=== PATIENT | female | born 2000 | race African-American/Black ===

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

== ENCOUNTER 2019-01-19 14:16 | Inpatient (IN) | payer OTHER ==
[~2019-01-19] VITALS: Ht 170.1 cm; Wt 43.2 kg
--- NOTE | ~2019-01-19 | WRIGHTHP ---
[place], [place] PATIENT HISTORY AND PHYSICAL EXAM NAME: KARMEN RING UNIT #: [id number] ROOM: 415 DOCTOR: PARESH RUSH MD BIRTHDATE: [birth year] DOS: 01/19/2019 HISTORY OF PRESENT ILLNESS: The patient is 18 years old. She is known to me. She states that she was walking to her friend's house and developed a dizzy spell, fell over, hit her face on the concrete, developed a laceration of the nose and so she decided to come into the Emergency Room. She has had a cough for the last few days. She has not had any pleuritic symptoms. Does not have any chest pains or palpitations, does not have any fever or chills, but that morning, she thought that she was hot. PAST MEDICAL HISTORY: Significant for ADHD and history of iron deficiency anemia. MEDICATIONS: The patient takes Strattera 25 and iron 324 daily. SOCIAL HISTORY: She is a nonsmoker. Denies using any alcohol. PHYSICAL EXAMINATION: GENERAL: She is awake, alert and oriented. VITAL SIGNS: Graphic trend shows a pressure of 109/61, pulse of 69, respirations 20, temperature 98.3. LUNGS: Diminished breath sounds. No wheezes, rales or rhonchi heard. HEART: Regular. ABDOMEN: Soft, scaphoid. EXTREMITIES: Without any edema. LABORATORY DATA: White cell count is 15.8. Rapid flu negative. Comprehensive glucose 105, BUN 13, creatinine 1.04, sodium 138, potassium 3.6, chloride 106, bicarbonate 24, lactic acid 3.5. Chest x-ray shows right middle and lower lobe pneumonia. ASSESSMENT AND PLAN: 1. Right middle and lower lobe pneumonia, possible gram negative. We will add IV antibiotics and breathing treatments. 2. Sepsis pattern. Blood cultures and carr cultures have been ordered. 3. Lactic acidosis, possibly from sepsis. IV fluids have been ordered. It should start coming down. 4. Fall with laceration. Local wound care as ordered. The patient's drug screen was positive for cocaine as well as marijuana. Street drug use was noted. The patient was counseled. 5. Attention deficit hyperactivity disorder. Continue Strattera. [place], [place] PATIENT HISTORY AND PHYSICAL EXAM NAME: KARMEN RING UNIT #: [id number] ROOM: [facility] DOCTOR: PARESH RUSH MD BIRTHDATE: [birth year] PARESH RUSH MD [facility]IENT HISTORY AND PHYSICAL EXAMINATION [id number] PARESH RUSH MD 01/21/19 0854 interface
--- NOTE | ~2019-01-19 | EKG ---
[place], [place] ELECTROCARDIOGRAM REPORT NAME: KARMEN RING UNIT #: [id number] ROOM: 415 DOCTOR: PAMELA DRAFT REPORT BIRTHDATE: [birth year] [facility] Test Date: 2019-01-19 Test Time: 14:46:17 Pat Name: KARMEN RING Department: Room: 415 Gender: F Field Ironworker: Heidi Little : 2000 Requested By: ADRIEL CODY Order Number: [id number] Reading MD: Jakub Snider Measurements Intervals [place] Rate: 100 P: 43 AR: 115 QRS: 68 QRSD: 82 T: -20 QT: 315 QTc: 407 Interpretive Statements Sinus tachycardia Borderline repolarization abnormality Electronically Signed On 01-21-2019 11:57:45 PST by Jakub Snider CM:EKGRPT:ELECTROCARDIOGRAM REPORT [id number] ADRIEL CODY EPIPHANY DRAFT REPORT ADRIEL CODY
--- NOTE | ~2019-01-19 | WRIGHTHP ---
[place], [place] PATIENT HISTORY AND PHYSICAL EXAM [id number] UNIT #: [id number] ROOM: 415 DOCTOR: PARESH RUSH MD BIRTHDATE: [birth year] DOS: 01/21/2019 SUBJECTIVE: The patient is resting, is not having any new complaints. OBJECTIVE: VITAL SIGNS: Blood pressure is 109/61, pulse of 70, respirations 20, temperature 98.3. LUNGS: Diminished breath sounds. Clear. HEART: Regular. ABDOMEN: Soft and scaphoid. EXTREMITIES: Without any edema. LABORATORY DATA: Blood cultures, no bacterial growth. Urine culture, no bacterial growth. Strep screen negative. Lactic acid finally normalized to 1.3. ASSESSMENT AND PLAN: 1. Right lower lobe and right middle lobe pneumonia, possible gram-negative, on IV antibiotics. 2. Elevated white cell count with sepsis pattern, which has been ruled out with a negative blood cultures, ovarian chest x-ray and lab work. If it is okay, the plan is to discharge the patient to home today. PARESH RUSH MD CM:HISPHYS:PATIENT HISTORY AND PHYSICAL EXAMINATION 4 PARESH RUSH MD 01/21/19 0840 interface
[2019-01-19 14:17] VITALS: BP 107/77
[2019-01-19] MEDS ORDERED: IRON18 MG PO (14:18)
[2019-01-19 15:08] LABS: BASO # 0.1 10*3/uL (0.0-0.1); BASO % 0.3 % (0.0-1.0); EOS # 0.1 10*3/uL (0.0-0.4); EOS % 0.5 % (1.0-4.0); HEMOGLOBIN 10.5 g/dl (12.0-16.0); LYMPH # 2.6 10*3/uL (1.3-4.4); LYMPH % 16.8 % (27.0-41.0); MEAN CORPUSCULAR HGB 21.9 pg (27.0-31.0); MEAN CORPUSCULAR HGB CONC 29.2 g/dl (33.0-37.0); MEAN PLATELET VOLUME 8.8 fl (9.6-12.3); MONO # 1.5 10*3/uL (0.1-1.0); MONO % 9.3 % (3.0-9.0); NEUT # 11.5 10*3/uL (2.3-7.9); NEUT % 72.8 % (47.0-73.0); PLATELET COUNT AUTOMATED 315 10*3/uL (130-400); RED CELL DISTRI WIDTH 19.7 % (0-14.5); WHITE BLOOD COUNT 15.8 10*3/uL (4.8-10.8)
[2019-01-19 15:17] VITALS: BP 120/75
[2019-01-19 15:21] LABS: ALBUMIN 3.6 gm/dl (3.1-4.5); ALKALINE PHOSPHATASE 83 U/L (45-117); BUN 13 mg/dl (7-24); CHLORIDE 106 mmol/L (98-107); CREATININE 1.04 mg/dL (0.55-1.02); POTASSIUM 3.6 mmol/L (3.5-5.1); SGOT/AST 16 IU/L (3-35); SGPT/ALT 21 U/L (12-78); SODIUM 138 mmol/L (136-145); TOTAL PROTEIN 8.4 gm/dL (6.4-8.2)
--- NOTE | 2019-01-19 15:24 | NUR ---
NOTIFIED BY LAB PTS LACTIC ACID 3.5. FRANKLIN SQUIRES NOTIFIED.
[2019-01-19 15:32] LABS: BILIRUBIN NEGATIVE (NEGATIVE); BLOOD 3+ (NEGATIVE); CLARITY CLOUDY (CLEAR); COLOR YELLOW (YELLOW); GLUCOSE NEGATIVE (NEGATIVE); KETONE NEGATIVE (NEGATIVE); LEUKO ESTERASE NEGATIVE (NEGATIVE); NITRITE NEGATIVE (NEGATIVE); PH 5.5 (5.0-9.0); SPECIFIC GRAVITY >= 1.030 (1.005-1.030); UROBILINOGEN 0.2 E.U./dl (0.2-1.0)
[2019-01-19 15:38] LABS: BACTERIA 2+; EPITHELIAL CELLS TNTC; MUCOUS TRACE
[2019-01-19 15:40] LABS: URINE AMPHETAMINES < 1000 (1000ng/ml); URINE BARBITURATES < 200 (200ng/ml); URINE BENZODIAZEPINES < 200 (200ng/ml); URINE CANNABINOIDS (THC) > 50 (50ng/ml); URINE COCAINE > 300 (300ng/ml); URINE METHADONE < 300 (300ng/ml); URINE OPIATES < 300 (300ng/ml); URINE PHENCYCLIDINE < 25 (25ng/ml)
--- NOTE | 2019-01-19 15:47 | NUR ---
PT JOSE HER BREATHING RXMENT.SHE IS MORE ALERT. IV ROCEPHIN INFUSING. MOM AT BEDSIDE.---GINNY LOCO RN
[2019-01-19 17:23] VITALS: BP 101/58
--- NOTE | 2019-01-19 17:46 | NUR ---
ALSO NOTE,UPON PT ARRIVAL HER NOSE ABRASION WAS CLEANSED WITH STERILE SALINE. PT GIVEN KELLEY CRACKERS AND HIRAL RICHAR FOR C/O HUNGER.PT BEING ADMITTED AT THIS TIME.--GINNY LOCO RN
[2019-01-19] MEDS ORDERED: ATOMOXETINE HCL25 MG PO (18:09)
[2019-01-19 18:15] VITALS: BP 102/59
--- NOTE | 2019-01-19 18:15 | NUR ---
A 18, admitted to , under the services of PARESH Boucher MD with a diagnosis of SEVERE SEPSIS,RIGHT LOWER LOBE PNEUMONIA\. Chief complaint is SHORTNESS OF BREATH.. Patient arrived via ambulatory from ER. Monitor applied. Initial assessment completed. Vital signs taken and recorded. PARESH BOUCHER MD notified of admission to the unit. Orders received. See assessment for past medical history, medications and allergies. Patient and/or family oriented to unit. [facility] visitation policy reviewed. Clothing/patient valuable form completed. SANDRA HOOKS
--- NOTE | 2019-01-19 18:28 | NUR ---
PT WAS PRESCRIBED STRATTERA BUT ONLY TOOK MED FOR FEW A FEW DAYS. PT HAS HX ADHD.PT CURRENTLY TAKES NO HOME MEDS AT THIS TIME.
--- NOTE | 2019-01-19 19:00 | NUR ---
ASSUMED CARE FOR THIS PT AT THIS TIME. PT SLEEPING QUIETLY IN BED. NO S/S OF DISTRESS NOTED. WILL MONITOR. CALL LIGHT IN REACH.
[2019-01-19 20:00] VITALS: BP 116/72
--- NOTE | 2019-01-19 21:54 | NUR ---
PT STATES THAT TYLENOL WAS EFFECTIVE FOR PAIN RELIEF.
[2019-01-20] VITALS: BP 110/58
--- NOTE | 2019-01-20 05:56 | NUR ---
KARMEN RING [id number] Please refer to the physician's history and physical for past medical history, comorbid conditions, and allergies. Diagnosis: LEUKOCYTOSIS,SEVERE SEPSIS,RIGHT LOWER LOBE PNEUMO Mumtaz Score: 22,LOW OR NO RISK WOUND DESCRIPTIONS: Wound Number: 1 Location of the wound: bridge of nose Type of wound: traumatic Thickness: Partial Size: 0.4cm x 1.0cm x 0.1cm Tunneling: none Undermining: none Sinus Tract: none Presence of Exudate: Amount: None Color: Red Odor: None Periwound Skin Appearance: Normal Wound edges: approximated Pain (associated with wound): none at time of assessment How does patient state this happened? pt stated she fell face first and this is how this happened Surface the patient is resting on: Isoflex SKIN PREVENTION RECOMMENDATION: 1. Pressure redistribution support surface as appropriate 2. Elevate heels 3. Remove boots/TEDS every shift and reapply 4. Head of bed 30 degrees as tolerated 5. Assess nutrition and hydration 6. Manage moisture 7. Avoid the use of containment devices while in bed 8. Use absorptive products on surfaces limit layers of linens on bed 9. Turn and reposition every 1-2 hours in bed and every 1 hour in chair as tolerated 10. Weight shifts every 15 minutes while up in chair 11. Offloading with pillows or device to keep heels elevated off bed 12. Monitor skin at least every shift 13. Inspect under medical devices twice a day WOUND TREATMENT RECOMMENDATIONS: Cleanse bridge of nose with nss and apply bactroban bid and cover with bandaid. Patient stated she will care for this area at home and doesn't want to follow up anywhere outpatient
[2019-01-20 08:00] VITALS: BP 108/62
--- NOTE | 2019-01-20 09:00 | NUR ---
[employer] in to talk to patient. Patient states lives at home with her grandmother. There are 0 steps in the home. Physician: Dr. Evelin Dunn [facility]: none Patient's level of ADLs: INDEPENDENT Patient has working utilities: yes DME: none Follow-up physician's appointment after d/c: she prefers to make her own follow up appt after discharge Does patient want to access PORTAL?: no Discharge plan discussed with patient. She lives at home with her grandmother. Her mother is on her way to the hospital from [place]. She is independent in her ADLs and ambulation. Discussed home health care services and she denies any home needs at this time. When medically stable she will be discharged to home. Her grandmother will provide transportation on discharge. Patient is on Levaquin and Zosyn, chest x-ray shows RLL pneumonia, + UA, UC -, BC pending, low grade temperature. IVETTE ANDRADE
[2019-01-20 12:00] VITALS: BP 121/58
--- NOTE | 2019-01-20 12:29 | NUR ---
Nutritional Support Services Note: Appetite is good for meals. She receives a regular diet. Ht.5'7 Wt.95#. IBW 125-145#. Dx of pneumonia. Pt was triggered for possible malnutrition. No signs of malnutrition noted. She has a 10# weight loss over the last few months, blames it on a decrease in appetite. Appetite has greatly improved. Labs are wnl. Encouraged good intake of meals, encouraged adequate protein and calories. Will provide a night snack. Will follow as needed. Martha Renner Rdn Ld
[2019-01-20 16:00] VITALS: BP 108/55
--- NOTE | 2019-01-20 17:29 | NUR ---
TYLENOL 650 MGGIVEN FOR C/O PAIN,05/04.
[2019-01-20 20:00] VITALS: BP 112/70
[2019-01-21] VITALS: BP 109/61
--- NOTE | 2019-01-21 04:21 | NUR ---
Patient resting quietly with no c/o discomfort. Respirations easy and regular. Vital signs stable. No overt distress. CUCO SANTANA
--- NOTE | 2019-01-21 04:39 | NUR ---
24 HR chart check completed.
[2019-01-21 08:00] VITALS: BP 115/80
[2019-01-21] MEDS ORDERED: CIPRO500 MG PO (08:27)
--- NOTE | 2019-01-21 08:30 | NUR ---
[employer] in to see patient. No new needs or request at this time. Dr. Dunn rounding. Dr. Dunn is awaiting chest x-ray results and lab work to see if she can be discharged today. When medically stable she will be discharged to home. She denies any home needs.
[2019-01-21 09:13] LABS: BASO % 0.4 % (0.0-1.0); EOS # 0.2 10*3/uL (0.0-0.4); HEMATOCRIT 26.6 % (37.0-47.0); HEMOGLOBIN 7.6 g/dl (12.0-16.0); LYMPH # 2.9 10*3/uL (1.3-4.4); LYMPH % 36.3 % (27.0-41.0); MEAN CELL VOLUME 75.6 fl (81.0-99.0); MEAN CORPUSCULAR HGB 21.6 pg (27.0-31.0); MEAN CORPUSCULAR HGB CONC 28.6 g/dl (33.0-37.0); MEAN PLATELET VOLUME 9.3 fl (9.6-12.3); MONO # 0.7 10*3/uL (0.1-1.0); MONO % 8.8 % (3.0-9.0); NEUT # 4.2 10*3/uL (2.3-7.9); NEUT % 52.1 % (47.0-73.0); PLATELET COUNT AUTOMATED 267 10*3/uL (130-400); RED BLOOD COUNT 3.52 10*6/uL (4.10-5.10); RED CELL DISTRI WIDTH 19.6 % (0-14.5); WHITE BLOOD COUNT 8.1 10*3/uL (4.8-10.8)
[2019-01-21 09:17] LABS: BUN 6 mg/dl (7-24); CHLORIDE 114 mmol/L (98-107); CREATININE 0.61 mg/dL (0.55-1.02); POTASSIUM 3.7 mmol/L (3.5-5.1); SODIUM 145 mmol/L (136-145)
--- NOTE | 2019-01-21 12:08 | NUR ---
DISCHARGE INSTRUCTIONS WENTOVER WITH PT. IV TAKEN OUT WOUND PICTURE TAKEN. PT HAS NO QUESTIONS. PT GOING HOME ON ATB PO CIPRO 500MG 2/DAY X 10 DAYS. PT WAITING ON MOM TO COME PICK HER UP
--- NOTE | 2019-01-21 12:30 | NUR ---
PT LEAVING IN CARE OF SELF.
== END 2019-01-21 12:30 | disposition home or self-care (01) | DRG 137 ==
LOC: ED 14:16 → 4E 16:59 → EDHOLD 16:59 → 4E 17:13
PROVIDERS: Nurse Practitioner; ADMIT Internal Medicine
DX: J15.6 Pneumonia due to other Gram-negative bacteria (principal); E87.2 Acidosis; F90.9 Attention-deficit hyperactivity disorder, unspecified type; S01.21XA Laceration without foreign body of nose, initial encounter; W18.30XA Fall on same level, unspecified, initial encounter; Y93.89 Activity, other specified; Y92.89 Other specified places as the place of occurrence of the external cause; Y99.8 Other external cause status; Z82.49 Family history of ischemic heart disease and other diseases of the circulatory system; Z80.8 Family history of malignant neoplasm of other organs or systems

== ENCOUNTER 2019-07-02 16:46 | Emergency (ER) | payer OTHER ==
[~2019-07-02] VITALS: Ht 170.1 cm; Wt 49.9 kg
[~2019-07-02 16:46] MED LIST changes: +ATOMOXETINE HCL25 MG PO; +CIPRO500 MG PO; +IRON18 MG PO
[2019-07-02 17:00] VITALS: BP 112/72
== END 2019-07-02 18:25 | disposition left against medical advice (07) ==
LOC: ED 16:46
DX: M25.552 Pain in left hip (principal); Z79.899 Other long term (current) drug therapy

== ENCOUNTER → 2019-10-20 | Outpatient (CLI) | payer OTHER | END | disposition home or self-care (01) | LOC: US 13:30 | PROVIDERS: ATTEND Nurse Practitioner Women's Health | DX: Z34.02 Encounter for supervision of normal first pregnancy, second trimester (principal); Z3A.16 16 weeks gestation of pregnancy ==

== ENCOUNTER → 2020-02-18 | Outpatient (CLI) | payer OTHER | END | disposition home or self-care (01) | LOC: US 14:00 | PROVIDERS: ATTEND Nurse Practitioner Women's Health | DX: Z34.03 Encounter for supervision of normal first pregnancy, third trimester (principal); Z3A.34 34 weeks gestation of pregnancy ==

== ENCOUNTER 2020-07-14 13:47 | Emergency (ER) | payer OTHER ==
[~2020-07-14] VITALS: Ht 170 cm; Wt 45.4 kg
[2020-07-14 13:54] VITALS: BP 129/77
[2020-07-14 15:50] LABS: BASO % 0.3 % (0.0-1.0); EOS # 0.2 10*3/uL (0.0-0.4); EOS % 1.7 % (1.0-4.0); HEMATOCRIT 35.8 % (37.0-47.0); LYMPH # 1.6 10*3/uL (1.3-4.4); LYMPH % 13.5 % (27.0-41.0); MEAN CELL VOLUME 78.2 fl (81.0-99.0); MEAN CORPUSCULAR HGB 24.2 pg (27.0-31.0); MEAN PLATELET VOLUME 8.5 fl (9.6-12.3); MONO # 0.9 10*3/uL (0.1-1.0); NEUT % 76.2 % (47.0-73.0); PLATELET COUNT AUTOMATED 346 10*3/uL (130-400); RED BLOOD COUNT 4.58 10*6/uL (4.10-5.10); RED CELL DISTRI WIDTH 16.8 % (0-14.5); WHITE BLOOD COUNT 11.8 10*3/uL (4.8-10.8)
[2020-07-14 16:05] LABS: ALBUMIN 3.3 gm/dl (3.1-4.5); ALKALINE PHOSPHATASE 87 U/L (45-117); BUN 8 mg/dl (7-24); CHLORIDE 110 mmol/L (98-107); CREATININE 0.84 mg/dL (0.55-1.02); POTASSIUM 3.7 mmol/L (3.5-5.1); SGOT/AST 10 IU/L (3-35); SGPT/ALT 21 U/L (12-78); SODIUM 141 mmol/L (136-145); TOTAL PROTEIN 7.2 gm/dL (6.4-8.2)
[2020-07-14 18:28] LABS: BILIRUBIN Negative (Negative); BLOOD 2+ (Negative); CLARITY Clear (Clear); COLOR Yellow (Yellow); GLUCOSE Negative (Negative); KETONE Negative (Negative); LEUKO ESTERASE 2+ (Negative); NITRITE Negative (Negative); PH 7.5 (4.5-8.0)
[2020-07-14 18:55] LABS: BACTERIA TRACE; RBC 0-2 rbc/hpf (0-2); WBC 0-2 wbc/hpf (0-5)
== END 2020-07-14 18:30 | disposition left against medical advice (07) ==
LOC: ED 13:47
PROVIDERS: Nurse Practitioner
DX: B34.9 Viral infection, unspecified (principal); Z79.899 Other long term (current) drug therapy; Z98.890 Other specified postprocedural states

== ENCOUNTER 2021-02-19 01:32 | Emergency (ER) | payer OTHER ==
[~2021-02-19] VITALS: Ht 172.7 cm; Wt 49.9 kg
[2021-02-19 03:19] LABS: HEMATOCRIT 28.1 % (37.0-47.0); MEAN CELL VOLUME 79.6 fl (81.0-99.0); MEAN CORPUSCULAR HGB 24.4 pg (27.0-31.0); MEAN CORPUSCULAR HGB CONC 30.6 g/dl (33.0-37.0); MEAN PLATELET VOLUME 8.5 fl (9.6-12.3); PLATELET COUNT AUTOMATED 321 10*3/uL (130-400); RED BLOOD COUNT 3.53 10*6/uL (4.10-5.10); RED CELL DISTRI WIDTH 16.5 % (0-14.5); WHITE BLOOD COUNT 7.8 10*3/uL (4.8-10.8)
[2021-02-19 03:37] LABS: ALKALINE PHOSPHATASE 69 U/L (45-117); BUN 15 mg/dl (7-24); CHLORIDE 111 mmol/L (98-107); CREATININE 0.79 mg/dL (0.55-1.02); LIPASE 130 U/L (73-393); POTASSIUM 3.6 mmol/L (3.5-5.1); SGOT/AST 16 IU/L (3-35); SGPT/ALT 18 U/L (12-78); SODIUM 142 mmol/L (136-145); TOTAL PROTEIN 6.2 gm/dL (6.4-8.2)
[2021-02-19 03:43] LABS: PLATELET SUFFICIENCY NORMAL (NORMAL); TOTAL CELLS COUNTED 100 #CELLS
[2021-02-19 05:12] VITALS: BP 100/62
[2021-02-19 05:47] LABS: BILIRUBIN Negative (Negative); BLOOD Negative (Negative); CLARITY Clear (Clear); COLOR Yellow (Yellow); GLUCOSE Negative (Negative); KETONE Negative (Negative); NITRITE Negative (Negative)
[2021-02-19 05:58] LABS: LEUKO ESTERASE Negative (Negative)
[2021-02-19 06:00] LABS: URINE AMPHETAMINES < 1000 (1000ng/ml); URINE BARBITURATES < 200 (200ng/ml); URINE BENZODIAZEPINES < 200 (200ng/ml); URINE CANNABINOIDS (THC) < 50 (50ng/ml); URINE COCAINE > 300 (300ng/ml); URINE METHADONE < 300 (300ng/ml); URINE OPIATES < 300 (300ng/ml)
[2021-02-19 06:02] LABS: CALCIUM OXALATE CRYSTALS Trace; EPITHELIAL CELLS 0-2; MUCOUS 1+
[2021-02-19 06:03] LABS: URINE PHENCYCLIDINE < 25 (25ng/ml)
== END 2021-02-19 06:43 | disposition home or self-care (01) ==
LOC: ED 01:32
PROVIDERS: Emergency Medicine
DX: R10.31 Right lower quadrant pain (principal)